=== PATIENT | male | born 1950 | race Caucasian/White ===

== ENCOUNTER → 2016-12-11 | Outpatient (CLI) | payer BC, MEDICARE ==
[~2016-12-11] MED LIST: ALPR0.5T PO; ASPI-781 PO; ATOR20TA38 PO; FLUT9.9S NASAL
--- NOTE | 2016-12-11 14:31 | RADRPT ---
PROCEDURE: XR Right hip and pelvis. CLINICAL INDICATION: Right hip pain. Pelvic pain. Postop. TECHNIQUE: Two views. Frontal pelvis and lateral right hip. COMPARISON: 12/20/2015. FINDINGS: There is no fracture or dislocation. The soft tissues are normal. There is a right hip total arthroplasty which appears satisfactory. There is also a left hip total arthroplasty which appears satisfactory. There is no lytic or blastic lesion. The upper pelvis is not completely included on the image. IMPRESSION: 1. Satisfactory postoperative appearance of both hips. 2. Upper pelvis not completely included on the image. RPTAT: QQ .En Jang MD, MD Date Time Electronically viewed and signed by .En Jang MD, MD on 12/11/2016 14:31 .R/
--- NOTE | 2016-12-11 23:53 | HKNOTE ---
DATE OF SERVICE: 12/11/2016 Patient underwent bilateral hip replacements performed by me in 2009 and 2014. He comes for "a [facility]." He has absolutely no problems with his hips. "I am retired now and I just wanted to know if everything was okay." PHYSICAL EXAMINATION: GENERAL: A remarkably fit and youthful looking 66-year-old male. His gait is normal. He walks wit hout a walking aid. VITAL SIGNS: Height 5 feet 6 inches, weight 140 pounds. Blood pressure 130/65, temperature 97.8. Both hips have full range of motion without pain. No tenderness anywhere around either hip. IMAGING: X-rays of his pelvis and hips obtained today show completely perfectly well done hip repla cements bilaterally. The components are all well aligned and there is no sign of loosening or any ot her problem. The patient given reassurance. He will be seen again as necessary. Dictated By: WHITNEY ALEXANDER/PADDY Conf#: [id number] DID#: [id number]
== END | disposition home or self-care (01) ==
LOC: HKI 13:50
DX: Z47.1 Aftercare following joint replacement surgery (principal); Z96.643 Presence of artificial hip joint, bilateral
CPT/HCPCS: 73502